=== PATIENT | male | born 1990 | race Two or more races ===

== ENCOUNTER 2022-04-23 23:53 | Emergency (ER) | payer SELFPAY ==
[2022-04-24] MEDS ORDERED: Diphtheria,Pertussis(Acell),Tetanus Vaccine 0.5 ML Syringe IM ONE (00:11)
[2022-04-24] MEDS ORDERED: cefTRIAXone 1 GM in Sodium Chloride 0.9% 100 ML IV ONE (00:11)
[2022-04-24] MEDS ORDERED: Lactated Ringers 1,000 ML IV SCH (00:15)
[2022-04-24] MEDS ORDERED: fentaNYL 100 MCG/2 ML SDV IVPUSH ONE (00:26)
[2022-04-24] MEDS ORDERED: Midazolam 1 MG/ML 2 ML SDV IVPUSH ONE (00:26)
[2022-04-24] MEDS ORDERED: Ondansetron 4 MG/2 ML SDV IVPUSH ONE (00:26)
[2022-04-24] MEDS ORDERED: Sodium Chloride 0.9% 10 ML Syringe FLUSH PRN (00:48)
[2022-04-24] MEDS ORDERED: Lidocaine 2% with EPINEPHrine 1:200,000 20 ML SDV ONE (03:31)
[2022-04-24] MEDS ORDERED: Lidocaine 1% 10 ML MDV ONE (03:33)
== END 2022-04-24 05:42 | disposition home or self-care (01) ==
LOC: JD.ED 23:53
DX: S51.012A Laceration without foreign body of left elbow, initial encounter (principal); S41.111A Laceration without foreign body of right upper arm, initial encounter; S01.81XA Laceration without foreign body of other part of head, initial encounter; S51.811A Laceration without foreign body of right forearm, initial encounter; S20.222A Contusion of left back wall of thorax, initial encounter; M25.422 Effusion, left elbow; W26.8XXA Contact with other sharp object(s), not elsewhere classified, initial encounter
CPT/HCPCS: 12001; 36415; 70450; 70450-26; 71045; 71045-26; 72125; 72125-26; 73090-26-RT; 73090-RT; 73620-26-LT; 73620-LT; 80053; 80307; 85007; 85027; 85610; 85730; 90471; 90715; 96365; 96375; 99284; 99284-25; J0696; J2250; J2405; J3010; J3490